=== PATIENT | male | born 1945 | race Caucasian/White ===

== ENCOUNTER 2018-07-30 13:37 | Emergency (ER) | payer MEDICARE ==
[2018-07-30 14:12] VITALS: BP 147/104
--- NOTE | 2018-07-30 15:02 | UC ---
Skin Complaint HPI - HPI Summary HPI Summary: 73 male presents to the urgent care c/o pt states a few days ago he noticed an open sore to lt corner of his mouth that seemed to go away and then appear to rt side of mouth. pt states he also noticed some swelling to rt side of face that pt states feels like he was punched in his face. pt also has a tick in an envalope and states that he found it on his lt knee and states it was the size of a pencil eracer. pt has found an illness on the internet that he thinks he has. - History of Current Complaint Chief Complaint: UCSkin Time Seen by Provider: 07/30/18 14:50 Stated Complaint: SOFT TISSUE COMPLAINT Pain Intensity: 0 - Allergy/Home Medications Allergies/Adverse Reactions: Allergies Allergy/AdvReac Type Severity Reaction Status Date / Time No Known Allergies Allergy Verified 07/30/18 14:12 PMH/Surg Hx/FS Hx/Imm Hx - Surgical History Surgical History: Yes Surgery Procedure, Year, and Place: right wrist bone graft. deviated septum. shoulder impingement syndrome - Family History Known Family History: Negative: Cardiac Disease, Hypertension, Diabetes, Blood Disorder - Social History Alcohol Use: Daily Alcohol Amount: "A COUPLE EVERY FEW DAYS" Substance Use Type: None Smoking Status (MU): Never Smoked Tobacco Have You Smoked in the Last Year: No - Immunization History Most Recent Influenza Vaccination: none Most Recent Pneumonia Vaccination: had in the past Physical Exam - Summary Physical Exam Summary: Vital Signs Reviewed: Yes General: well developed, well nourished male sitting in the examining table w/o any apparent distress. Eyes: Positive: Conjunctiva Clear - PERRLA, EOMI ENT: Positive: Normal ENT inspection, Hearing grossly normal, Pharynx normal, TMs normal Neck: Positive: Supple, Nontender, No Lymphadenopathy Respiratory: Positive: Chest nontender, Lungs clear, Normal breath sounds Cardiovascular: Positive: RRR, No Murmur, Pulses Normal Abdomen Description: Positive: Nontender, No Organomegaly, Soft. Negative: CVA Tenderness (R), CVA Tenderness (L) Bowel Sounds: Positive: Present Musculoskeletal: Positive: Strength Intact, ROM Intact, No Edema Neurological Exam: Normal Psychological Exam: Normal Skin: Positive: rashes - upper side of Left knee with tick bite with surrounding erythema, non tender to palpation. tick no longer present, no swelling or drainage observed. Triage Information Reviewed: Yes Vital Signs: Initial Vital Signs Temp 98.2 F 07/30/18 14:06 Pulse 71 07/30/18 14:06 Resp 18 07/30/18 14:06 BP 147/104 07/30/18 14:06 Pulse Ox 99 07/30/18 14:06 Course/Dx - Differential Diagnoses - Skin Complaint Differential Diagnoses: Abscess, Cellulitis, Contact Dermatitis, Local Allergic Reaction, Lymphadenitis, MRSA, Tick Born Illness, Tinea, Other - angular cheilitis - Diagnoses Provider Diagnoses: 1- Tick bite. 2- Angular cheilitis. 3- Uncontrolled HTN Discharge - Sign-Out/Discharge Documenting (check all that apply): Patient Departure - D/c home All imaging exams completed and their final reports reviewed: No Studies - Discharge Plan Condition: Stable Disposition: HOME Prescriptions: Cephalexin CAP* [Keflex CAP*] 500 mg PO TID #21 cap Mupirocin 2% OINT* [Bactroban 2 % Oint*] 1 applic TOPICAL BID #1 tube Patient Education Materials: Cellulitis (ED), Tick Bite (ED) Referrals: Pastor Zhong MD [Primary Care Provider] - 1 Week Additional Instructions: 1- Please observe the area for the development or Erythema Migrans for up to 30 days following exposure. Components of the tick saliva can cause transient erythema that should not be confused with Erythema Migrans. If you develop the bull's eye rash, fever, joint pains please return to the urgent care or f/u with your PCP for further management. 2-Antibiotic prophylaxis with Doxycycline was given to you today to prevent lyme Disease. Lyme serology can be drawn in 2 weeks with your PCP to r/o Lyme disease since there is probability of negative results at early exposure. 3- Please apply Bactroban topical cream on affected area and Take Keflex PO as directed tpo alleviate symptoms. Apply warm compresses w/ massage to alleviate symptoms 4- If redness increases and drainage or fever develops despite taking antibiotics please return to the urgent care or your PCP for further management 5- Your BP is elevated today. please decrease salt in your diet, monitor BP and if it continues to be elevated please f/u with your PCP for further management - Billing Disposition and Condition Condition: STABLE Disposition: Home
[2018-07-30] MEDS ORDERED: DOXYcycline CAP(*) 100 MG PO ONE (15:13)
== END 2018-07-30 15:33 | disposition home or self-care (01) ==
LOC: UCEAST 13:37
DX: K13.0 Diseases of lips (principal); S80.262A Insect bite (nonvenomous), left knee, initial encounter; W57.XXXA Bitten or stung by nonvenomous insect and other nonvenomous arthropods, initial encounter; Y92.9 Unspecified place or not applicable; I10 Essential (primary) hypertension
CPT/HCPCS: 99212; A9270-GY; G0463

== ENCOUNTER 2020-07-02 12:00 | Observation (INO) ==
[2020-07-02 12:26] LABS: ABS Basophils 0.1 10^3/ul (0-0.2); ABS Eosinophils 0.2 10^3/ul (0-0.6); ABS Lymphocytes 2.1 10^3/ul (1.0-4.8); ABS Monocytes 0.7 10^3/ul (0-0.8); ABS Neutrophils 3.9 10^3/ul (1.5-7.7); Eosinophil % 2.9 %; Hematocrit 45 % (42-52); Hemoglobin 15.5 g/dL (14.0-18.0); Mean Corpuscular HGB Conc 34 g/dL (31-36); Mean Corpuscular Hemoglobin 35 pg (27-31); Mean Corpuscular Volume 101 fL (80-94); Mean Platelet Volume 6.9 fL (7.4-10.4); Platelet Count 239 10^3/uL (150-450); Red Blood Count 4.47 10^6 /uL (4.18-5.48); Red Cell Distribution Width 13 % (10-15)
[2020-07-02 12:38] LABS: INR 1.03 (0.82-1.09)
[2020-07-02 12:42] LABS: Albumin 4.5 g/dL (3.2-5.2); Albumin/Globulin Ratio 1.3 (1-3); BUN/Creatinine Ratio 15.1 (8-20); Calcium 9.9 mg/dL (8.6-10.3); EGFR African American 104.9 (>60); EGFR Non-African American 86.7 (>60); Globulin 3.4 g/dL (2-4); Potassium 4.1 mmol/L (3.5-5.0); Total Bilirubin 0.5 mg/dL (0.2-1.0); Total Protein 7.9 g/dL (6.4-8.9)
[2020-07-02 12:44] LABS: Troponin I 0.01 ng/mL (<0.03)
[2020-07-02] MEDS ORDERED: Heparin DRIP 25,000 UNITS BAG 25,000 UNITS/500 ML BAG IV SCH (12:45)
[2020-07-02] MEDS ORDERED: Heparin 5000 UNITS/ML 1 mL VIAL IV SCH (13:00)
[2020-07-02] MEDS ORDERED: Morphine 4 MG/ML VIAL (1 ml) IV ONE (13:38)
[2020-07-02 14:00] LABS: Activated Partial Thrombo Time 28.2 seconds (26.0-38.0)
[2020-07-02] MEDS: Enoxaparin 40 MG/0.4 ML SYR SUBCUT SCH (16:28)
[2020-07-02] MEDS ORDERED: Nitro 2% OINT (Nitroglycerin) 1 INCH/PAK TOPICAL ONE (16:47)
[2020-07-02] MEDS ORDERED: Al Hydrox/Mg Hydrox/Simet LIQ 30 ML UDC PO ONE ×2 (18:23→18:29)
[2020-07-03 06:22] LABS: ABS Basophils 0.1 10^3/ul (0-0.2); ABS Eosinophils 0.2 10^3/ul (0-0.6); ABS Lymphocytes 2.3 10^3/ul (1.0-4.8); ABS Monocytes 0.7 10^3/ul (0-0.8); Eosinophil % 3.9 %; Hematocrit 41 % (42-52); Hemoglobin 14.2 g/dL (14.0-18.0); Lymphocyte % 36.2 %; Mean Corpuscular HGB Conc 35 g/dL (31-36); Mean Corpuscular Hemoglobin 36 pg (27-31); Mean Corpuscular Volume 101 fL (80-94); Mean Platelet Volume 7.2 fL (7.4-10.4); Platelet Count 203 10^3/uL (150-450); Red Blood Count 4.01 10^6 /uL (4.18-5.48); Red Cell Distribution Width 13 % (10-15); White Blood Count 6.3 10^3/uL (3.5-10.8)
[2020-07-03 06:40] LABS: BUN/Creatinine Ratio 12.5 (8-20); Calcium 8.9 mg/dL (8.6-10.3); EGFR Non-African American 94.2 (>60); Potassium 4.1 mmol/L (3.5-5.0)
[2020-07-03] MEDS: Morphine 2 MG/ML SYRINGE IV PRN ×2 (09:40→16:19)
[2020-07-03] MEDS ORDERED: Morphine 2 MG/ML SYRINGE IV ONE (11:05)
[2020-07-03] MEDS ORDERED: Iohexol 350 (CONTRAST) 500 ML MDV IV ONE (13:01)
[2020-07-03] MEDS: Enoxaparin 40 MG/0.4 ML SYR SUBCUT SCH (15:06)
[2020-07-03 17:09] LABS: Urine Appearance Clear; Urine Bilirubin Negative (Negative); Urine Blood Negative (Negative); Urine Color Yellow; Urine Glucose Negative (Negative); Urine Ketones Trace (Negative); Urine Nitrite Negative (Negative); Urine Protein Negative (Negative); Urine Urobilinogen Negative (Negative)
[2020-07-03 17:38] LABS: Urine Specific Gravity > 1.059 (1.010-1.030)
[2020-07-03 19:36] VITALS: BP 186/87
[2020-07-04] MEDS ORDERED: Multivitamins/Minerals TAB PO SCH (09:00)
== END 2020-07-03 21:15 | disposition left against medical advice (07) ==
LOC: ED 12:00 → MEDTELE 12:00
PROVIDERS: ADMIT Student in an Organized Health Care Education/Training Program; ATTEND Internal Medicine